=== PATIENT | male | born 1940 | race Caucasian/White ===

== ENCOUNTER 2017-09-14 09:24 | Inpatient (IN) | payer MEDICARE ==
[~2017-09-14] VITALS: Ht 182.9 cm; Wt 86.2 kg
[2017-09-14 09:33] VITALS: BP 127/72
[2017-09-14] MEDS ORDERED: Sodium Chloride 500ML 500 ML IV ONE ×2 (09:33→11:00)
[2017-09-14 10:08] LABS: HEMATOCRIT 42.7 % (42.0-52.0); MEAN CORPUSCULAR VOLUME 89 FL (80-99); PLATELET COUNT 126 K/UL (150-450); RED CELL DISTRIBUTION WIDTH 11.4 % (11.6-14.8); WHITE BLOOD COUNT 11.1 K/UL (4.8-10.8)
[2017-09-14 10:12] LABS: APPEARANCE,URINE CLEAR; BILIRUBIN, URINE NEGATIVE (NEGATIVE); COLOR,URINE PALE YELLOW; GLUCOSE, URINE (UA) 4+ (NEGATIVE); KETONES,URINE 1+ (NEGATIVE); LEUKOCYTE ESTERASE ,URINE NEGATIVE (NEGATIVE); NITRITE,URINE NEGATIVE (NEGATIVE); PH,URINE 5 (4.5-8.0); PROTEIN,URINE 2+ (NEGATIVE); UROBILINOGEN,URINE NORMAL MG/DL (0.0-1.0)
[2017-09-14 10:22] LABS: ANION GAP 9 mmol/L (5-15); BLOOD UREA NITROGEN 21 mg/dL (7-18); CALCIUM 8.8 MG/DL (8.5-10.1); CARBON DIOXIDE 25 MMOL/L (21-32); CHLORIDE 101 MMOL/L (98-107); CREATININE 1.7 MG/DL (0.55-1.30); POTASSIUM 5.5 MMOL/L (3.5-5.1); SODIUM 135 MMOL/L (136-145)
[2017-09-14 10:32] LABS: ALANINE AMINOTRANSFERASE 56 U/L (12-78); ALBUMIN 3.6 G/DL (3.4-5.0); ALBUMIN/GLOBULIN RATIO 0.9 (1.0-2.7); ALKALINE PHOSPHATASE 96 U/L (46-116); ASPARTATE AMINO TRANSFERASE 40 U/L (15-37); BILIRUBIN,TOTAL 0.8 MG/DL (0.2-1.0); CKMB 3.3 NG/ML (0.0-3.6); CREATINE KINASE 254 U/L (26-308)
--- NOTE | 2017-09-14 10:38 | Emergency Room Report ---
History of Present Illness General Chief Complaint: Vomiting Source: Patient Present Illness HPI Patient presents with complaints of nausea and vomiting Reports that he was flying in last night and had a [employer] hamburger Which she associates with the initiation of the symptoms Patient had some increased cramping as well in the mid abdominal area that has improved Also complains of initial diarrhea now starting Denies any fevers or chills denies any neck pain or photophobia Allergies: Coded Allergies: PENICILLINS (Verified Allergy, Unknown, 09/14/17) Patient History Past Medical History: see triage record Pertinent Family History: none Reviewed Nursing Documentation: PMH: Agreed; PSxH: Agreed Nursing Documentation-PMH Hx Cardiac Problems: Yes - [place],AFIB Hx Diabetes: Yes Review of Systems All Other Systems: negative except mentioned in HPI Physical Exam Vital Signs Date Time Temp Pulse Resp B/P (MAP) Pulse Ox O2 Delivery O2 Flow Rate FiO2 09/14/17 09:24 98.8 90 16 127/72 98 Room Air 98.8 Sp02 EP Interpretation: reviewed, normal General Appearance: well appearing, no apparent distress Head: normocephalic, atraumatic Eyes: bilateral eye PERRL, bilateral eye EOMI ENT: hearing grossly normal, normal pharynx, TMs + canals normal, uvula midline Neck: full range of motion, supple, no meningismus, no bony tend Respiratory: lungs clear, normal breath sounds, no rhonchi, no respiratory distress, no retraction, no accessory muscle use Cardiovascular #1: normal peripheral pulses, regular rate, rhythm, no edema, no gallop, no JVD, no murmur Gastrointestinal: normal bowel sounds, non tender, soft, no mass, no organomegaly, non-distended, no guarding, no hernia, no pulsatile mass, no rebound Genitourinary: no CVA tenderness Musculoskeletal: normal inspection Neurologic: oriented x3, responsive, 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 nml as tested, motor strength/ tone normal, sensory intact Psychiatric: mood/affect normal Skin: normal color, no rash, warm/dry, palpation normal Lymphatic: normal inspection, no adenopathy Medical Decision Making Diagnostic Impression: Primary Impression: Dehydration Additional Impressions: Renal insufficiency Thrombocytopenia ER Course Given the patient's history and presentation Multiple differentials are considered Initial baseline blood work reveals Hyperkalemia, patient's kidney function is elevated And the platelets are low I did make contact with the patient's primary physician Who reported previous idiopathic thrombocytopenia However does not recall the platelets being that low Also was not aware of any kidney disease however the family reports some elevated creatinine level Initially attempt was made to provide antibiotics for possible infectious pathology However the family has requested not to be given that medicine therefore further inpatient evaluation will be made This was also important regarding the patient's chest x-ray showing possible pneumonia versus scarring Patient denies any shortness of breath however Labs Test 09/14/17 09:56 White Blood Count 11.1 K/UL (4.8-10.8) Red Blood Count 4.80 M/UL (4.70-6.10) Hemoglobin 14.0 G/DL (14.2-18.0) Hematocrit 42.7 % (42.0-52.0) Mean Corpuscular Volume 89 FL (80-99) Mean Corpuscular Hemoglobin 29.2 PG (27.0-31.0) Mean Corpuscular Hemoglobin Concent 32.8 G/DL (32.0-36.0) Red Cell Distribution Width 11.4 % (11.6-14.8) Platelet Count 126 K/UL (150-450) Mean Platelet Volume 7.1 FL (6.5-10.1) Neutrophils (%) (Auto) % (45.0-75.0) Lymphocytes (%) (Auto) % (20.0-45.0) Monocytes (%) (Auto) % (1.0-10.0) Eosinophils (%) (Auto) % (0.0-3.0) Basophils (%) (Auto) % (0.0-2.0) Differential Total Cells Counted 100 Neutrophils % (Manual) 95 % (45-75) Lymphocytes % (Manual) 3 % (20-45) Monocytes % (Manual) 2 % (1-10) Eosinophils % (Manual) 0 % (0-3) Basophils % (Manual) 0 % (0-2) Band Neutrophils 0 % (0-8) Platelet Estimate Decreased Platelet Morphology Normal Urine Color Pale yellow Urine Appearance Clear Urine pH 5 (4.5-8.0) Urine Specific [place] 1.015 (1.005-1.035) Urine Protein 2+ (NEGATIVE) Urine Glucose (UA) 4+ (NEGATIVE) Urine Ketones 1+ (NEGATIVE) Urine Occult Blood Negative (NEGATIVE) Urine Nitrite Negative (NEGATIVE) Urine Bilirubin Negative (NEGATIVE) Urine Urobilinogen Normal MG/DL (0.0-1.0) Urine Leukocyte Esterase Negative (NEGATIVE) Urine RBC 0-2 /HPF (0 - 0) Urine WBC 0-2 /HPF (0 - 0) Urine Squamous Epithelial Cells Occasional /LPF Urine Bacteria Few /HPF (NONE) Sodium Level 135 MMOL/L (136-145) Potassium Level 5.5 MMOL/L (3.5-5.1) Chloride Level 101 MMOL/L (98-107) Carbon Dioxide Level 25 MMOL/L (21-32) Anion Gap 9 mmol/L (5-15) Blood Urea Nitrogen 21 mg/dL (7-18) Creatinine 1.7 MG/DL (0.55-1.30) Estimat Glomerular Filtration Rate mL/min (>60) Glucose Level 314 MG/DL (74-106) Calcium Level 8.8 MG/DL (8.5-10.1) Total Bilirubin 0.8 MG/DL (0.2-1.0) Aspartate Amino Transf (AST/SGOT) 40 U/L (15-37) Alanine Aminotransferase (ALT/SGPT) 56 U/L (12-78) Alkaline Phosphatase 96 U/L (46-116) Total Creatine Kinase 254 U/L (26-308) Creatine Kinase MB 3.3 NG/ML (0.0-3.6) Creatine Kinase MB Relative Index 1.2 Troponin I 0.000 ng/mL (0.000-0.056) Total Protein 7.4 G/DL (6.4-8.2) Albumin 3.6 G/DL (3.4-5.0) Globulin 3.8 g/dL Albumin/Globulin Ratio 0.9 (1.0-2.7) Lipase 153 U/L (73-393) Chest X-Ray Diagnostic Results Chest X-Ray Diagnostic Results : Chest X-Ray Ordered: Yes # of Views/Limited/Complete: 1 View Indication: Chest Pain EP Interpretation: Yes Interpretation: no effusion, no pneumothorax, other - Right upper lnfiltrate versus scarring Impression: Other - Right-sided infiltrate versus scarring Electronically Signed by: Gopal Sykes DO Last Vital Signs Date Time Temp Pulse Resp B/P (MAP) Pulse Ox O2 Delivery O2 Flow Rate FiO2 09/14/17 09:33 98.8 90 16 127/72 98 Room Air 98.8 Status: improved Disposition: ADMITTED INPATIENT Condition: Serious Gopal Sykes DO Sep 14, 2017 10:38
[2017-09-14 11:56] VITALS: BP 124/74
--- NOTE | 2017-09-14 12:21 | Diagnostic Imaging Report ---
Indication: Chest pain Technique: One view of the chest Comparison: None Findings: There is infiltrate in the inferior right upper lobe, bordering the minor fissure. The heart is enlarged. The remainder the lungs and pleural spaces are clear. Impression: Inferior right upper lobe infiltrate, likely pneumonia
[2017-09-14 12:48] VITALS: BP 130/79
[2017-09-14] MEDS ORDERED: Metoclopramide 10mg/2ml Inj IVP PRN (13:30)
--- NOTE | 2017-09-14 13:34 | Infectious Diseases Prog Note ---
Assessment/Plan Problems: (1) Pneumonia Assessment & Plan: with RUL infiltrates , will send blood culture to rule out bacteremia and start levaquin (2) Gastroenteritis due to food toxin Assessment & Plan: agree on stool culture and C diff (3) Diabetes mellitus Assessment & Plan: recommend tight glycemic control to keep blood glucose between 100-140 (4) Dehydration Assessment & Plan: continue IVF for hydration , monitor lytes Subjective Allergies: Coded Allergies: PENICILLINS (Verified Allergy, Unknown, 09/14/17) Objective Vital Signs Last 24 Hour Vital Signs Date Time Temp Pulse Resp B/P (MAP) Pulse Ox O2 Delivery O2 Flow Rate FiO2 09/14/17 12:50 98.2 91 18 130/79 98 Room Air 98.2 09/14/17 12:48 98.2 91 18 130/79 98 Room Air 98.2 09/14/17 11:56 98.8 88 16 124/74 99 Room Air 98.8 09/14/17 09:33 98.8 90 16 127/72 98 Room Air 98.8 09/14/17 09:24 98.8 90 16 127/72 98 Room Air 98.8 Height (Feet): 6 Weight (Pounds): 190 Laboratory Tests Test 09/14/17 09:56 White Blood Count 11.1 K/UL (4.8-10.8) H Red Blood Count 4.80 M/UL (4.70-6.10) Hemoglobin 14.0 G/DL (14.2-18.0) L Hematocrit 42.7 % (42.0-52.0) Mean Corpuscular Volume 89 FL (80-99) Mean Corpuscular Hemoglobin 29.2 PG (27.0-31.0) Mean Corpuscular Hemoglobin Concent 32.8 G/DL (32.0-36.0) Red Cell Distribution Width 11.4 % (11.6-14.8) L Platelet Count 126 K/UL (150-450) L Mean Platelet Volume 7.1 FL (6.5-10.1) Neutrophils (%) (Auto) % (45.0-75.0) Lymphocytes (%) (Auto) % (20.0-45.0) Monocytes (%) (Auto) % (1.0-10.0) Eosinophils (%) (Auto) % (0.0-3.0) Basophils (%) (Auto) % (0.0-2.0) Differential Total Cells Counted 100 Neutrophils % (Manual) 95 % (45-75) H Lymphocytes % (Manual) 3 % (20-45) L Monocytes % (Manual) 2 % (1-10) Eosinophils % (Manual) 0 % (0-3) Basophils % (Manual) 0 % (0-2) Band Neutrophils 0 % (0-8) Platelet Estimate Decreased L Platelet Morphology Normal Urine Color Pale yellow Urine Appearance Clear Urine pH 5 (4.5-8.0) Urine Specific [place] 1.015 (1.005-1.035) Urine Protein 2+ (NEGATIVE) H Urine Glucose (UA) 4+ (NEGATIVE) H Urine Ketones 1+ (NEGATIVE) H Urine Occult Blood Negative (NEGATIVE) Urine Nitrite Negative (NEGATIVE) Urine Bilirubin Negative (NEGATIVE) Urine Urobilinogen Normal MG/DL (0.0-1.0) Urine Leukocyte Esterase Negative (NEGATIVE) Urine RBC 0-2 /HPF (0 - 0) H Urine WBC 0-2 /HPF (0 - 0) Urine Squamous Epithelial Cells Occasional /LPF Urine Bacteria Few /HPF (NONE) Sodium Level 135 MMOL/L (136-145) L Potassium Level 5.5 MMOL/L (3.5-5.1) H Chloride Level 101 MMOL/L (98-107) Carbon Dioxide Level 25 MMOL/L (21-32) Anion Gap 9 mmol/L (5-15) Blood Urea Nitrogen 21 mg/dL (7-18) H Creatinine 1.7 MG/DL (0.55-1.30) H Estimat Glomerular Filtration Rate mL/min (>60) Glucose Level 314 MG/DL (74-106) H Calcium Level 8.8 MG/DL (8.5-10.1) Total Bilirubin 0.8 MG/DL (0.2-1.0) Aspartate Amino Transf (AST/SGOT) 40 U/L (15-37) H Alanine Aminotransferase (ALT/SGPT) 56 U/L (12-78) Alkaline Phosphatase 96 U/L (46-116) Total Creatine Kinase 254 U/L (26-308) Creatine Kinase MB 3.3 NG/ML (0.0-3.6) Creatine Kinase MB Relative Index 1.2 Troponin I 0.000 ng/mL (0.000-0.056) Total Protein 7.4 G/DL (6.4-8.2) Albumin 3.6 G/DL (3.4-5.0) Globulin 3.8 g/dL Albumin/Globulin Ratio 0.9 (1.0-2.7) L Lipase 153 U/L (73-393) Current Medications Medications (Trade) Dose Ordered Sig/Azeb Route PRN Reason Start Time Stop Time Status Last Admin Dose Admin Acetaminophen (Tylenol) 650 mg Q4H PRN ORAL Mild Pain (Pain Scale 1-3) 09/14/17 13:00 10/14/17 12:59 Dextrose (Dextrose 50%) 25 ml STAT PRN IV Hypoglycemia 09/14/17 13:00 10/14/17 12:59 Dextrose (Dextrose 50%) 50 ml STAT PRN IV Hypoglycemia 09/14/17 13:00 10/14/17 12:59 Insulin Aspart (NovoLOG) BEFORE MEALS AND HS SUBQ 09/14/17 16:30 10/14/17 16:29 Ondansetron HCl (Zofran) 4 mg Q6H PRN IVP Nausea & Vomiting 09/14/17 13:00 10/14/17 12:59 Sodium Chloride 1,000 ml @ 100 mls/hr Q10H IVLG 09/14/17 13:30 10/14/17 13:29 Stephanie Nixon M.D. Sep 14, 2017 13:34
--- NOTE | 2017-09-14 13:35 | GI Initial Consult Note ---
History of Present Illness General Date patient seen: Sep 14, 2017 Time patient seen: 13:23 Reason for Hospitalization: Vomiting Referring physician: CARROLL Reason for Consultation: N/V/D Present Illness HPI Patient presents with complaints of nausea and vomiting Reports that he was flying in last night and had a [employer] hamburger Which she associates with the initiation of the symptoms Patient had some increased cramping as well in the mid abdominal area that has improved Also complains of initial diarrhea now starting. Denies any fevers or chills denies any neck pain or photophobia. GI consulted for N/V/D. Pt seen, awake A&Ox NAD. Denies any abdominal pain at this time, states his diarrhea has resolved. Last episode was earlier this morning, denied any melena or hematochezia.. Also denied any coffee grounds or hematemesis. Last colonoscopy was over 10 years ago, refuses to have one done at this time. Labs reviewed show mild leukocytosis, hyperglycemia and renal insufficiency. CXR suggestive of pneumonia. Allergies: Coded Allergies: PENICILLINS (Verified Allergy, Unknown, 09/14/17) Patient History History Provided By: Patient PMH Narrative Hx Cardiac Problems: Yes - [place],AFIB Hx Diabetes: Yes Social History: Denies: smoking, alcohol use, drug use, other Review of Systems All Other Systems: negative except mentioned in HPI Physical Exam Vital Signs Date Time Temp Pulse Resp B/P (MAP) Pulse Ox O2 Delivery O2 Flow Rate FiO2 09/14/17 09:24 98.8 90 16 127/72 98 Room Air 98.8 Sp02 EP Interpretation: reviewed, normal Labs Laboratory Tests Test 09/14/17 09:56 White Blood Count 11.1 K/UL (4.8-10.8) H Red Blood Count 4.80 M/UL (4.70-6.10) Hemoglobin 14.0 G/DL (14.2-18.0) L Hematocrit 42.7 % (42.0-52.0) Mean Corpuscular Volume 89 FL (80-99) Mean Corpuscular Hemoglobin 29.2 PG (27.0-31.0) Mean Corpuscular Hemoglobin Concent 32.8 G/DL (32.0-36.0) Red Cell Distribution Width 11.4 % (11.6-14.8) L Platelet Count 126 K/UL (150-450) L Mean Platelet Volume 7.1 FL (6.5-10.1) Neutrophils (%) (Auto) % (45.0-75.0) Lymphocytes (%) (Auto) % (20.0-45.0) Monocytes (%) (Auto) % (1.0-10.0) Eosinophils (%) (Auto) % (0.0-3.0) Basophils (%) (Auto) % (0.0-2.0) Differential Total Cells Counted 100 Neutrophils % (Manual) 95 % (45-75) H Lymphocytes % (Manual) 3 % (20-45) L Monocytes % (Manual) 2 % (1-10) Eosinophils % (Manual) 0 % (0-3) Basophils % (Manual) 0 % (0-2) Band Neutrophils 0 % (0-8) Platelet Estimate Decreased L Platelet Morphology Normal Urine Color Pale yellow Urine Appearance Clear Urine pH 5 (4.5-8.0) Urine Specific [place] 1.015 (1.005-1.035) Urine Protein 2+ (NEGATIVE) H Urine Glucose (UA) 4+ (NEGATIVE) H Urine Ketones 1+ (NEGATIVE) H Urine Occult Blood Negative (NEGATIVE) Urine Nitrite Negative (NEGATIVE) Urine Bilirubin Negative (NEGATIVE) Urine Urobilinogen Normal MG/DL (0.0-1.0) Urine Leukocyte Esterase Negative (NEGATIVE) Urine RBC 0-2 /HPF (0 - 0) H Urine WBC 0-2 /HPF (0 - 0) Urine Squamous Epithelial Cells Occasional /LPF Urine Bacteria Few /HPF (NONE) Sodium Level 135 MMOL/L (136-145) L Potassium Level 5.5 MMOL/L (3.5-5.1) H Chloride Level 101 MMOL/L (98-107) Carbon Dioxide Level 25 MMOL/L (21-32) Anion Gap 9 mmol/L (5-15) Blood Urea Nitrogen 21 mg/dL (7-18) H Creatinine 1.7 MG/DL (0.55-1.30) H Estimat Glomerular Filtration Rate mL/min (>60) Glucose Level 314 MG/DL (74-106) H Calcium Level 8.8 MG/DL (8.5-10.1) Total Bilirubin 0.8 MG/DL (0.2-1.0) Aspartate Amino Transf (AST/SGOT) 40 U/L (15-37) H Alanine Aminotransferase (ALT/SGPT) 56 U/L (12-78) Alkaline Phosphatase 96 U/L (46-116) Total Creatine Kinase 254 U/L (26-308) Creatine Kinase MB 3.3 NG/ML (0.0-3.6) Creatine Kinase MB Relative Index 1.2 Troponin I 0.000 ng/mL (0.000-0.056) Total Protein 7.4 G/DL (6.4-8.2) Albumin 3.6 G/DL (3.4-5.0) Globulin 3.8 g/dL Albumin/Globulin Ratio 0.9 (1.0-2.7) L Lipase 153 U/L (73-393) General Appearance: well appearing, no apparent distress, alert Head: normocephalic EENT: PERRL/EOMI, normal ENT inspection Neck: supple Respiratory: normal breath sounds, no respiratory distress Cardiovascular: normal rate Gastrointestinal: normal inspection, non tender, soft, normal bowel sounds, non -distended Rectal: deferred Genitourinary: deferred Musculoskeletal: normal inspection, back normal Neurologic: normal inspection, alert, oriented x3, responsive Psychiatric: normal inspection, judgement/insight normal, memory normal Skin: normal inspection, normal color, no rash, warm/dry, palpation normal, well hydrated Lymphatic: normal inspection, no adenopathy Current Medications Current Medications Medications (Trade) Dose Ordered Sig/Azeb Route PRN Reason Start Time Stop Time Status Last Admin Dose Admin Acetaminophen (Tylenol) 650 mg Q4H PRN ORAL Mild Pain (Pain Scale 1-3) 09/14/17 13:00 10/14/17 12:59 Dextrose (Dextrose 50%) 25 ml STAT PRN IV Hypoglycemia 09/14/17 13:00 10/14/17 12:59 Dextrose (Dextrose 50%) 50 ml STAT PRN IV Hypoglycemia 09/14/17 13:00 10/14/17 12:59 Insulin Aspart (NovoLOG) BEFORE MEALS AND HS SUBQ 09/14/17 16:30 10/14/17 16:29 Ondansetron HCl (Zofran) 4 mg Q6H PRN IVP Nausea & Vomiting 09/14/17 13:00 10/14/17 12:59 Sodium Chloride 1,000 ml @ 100 mls/hr Q10H IVLG 09/14/17 13:30 10/14/17 13:29 GI: Plan Problems: (1) Hyperglycemia (2) Gastroparesis (3) Pneumonia (4) Dehydration (5) Gastroenteritis due to food toxin (6) Diabetes mellitus Plan CXR reviewed >> Inferior right upper lobe infiltrate, likely pneumonia gastroenteritis vs gastroparesis 2/2 DM elevated AST okay to advance to ADA diet DM management zofran prn, reglan for persistent vomiting PO/IV hydration abx trend LFTs fu labs, Hg A1C outpatient GI procedures Discussed with Dr. Velasco. Thank you for this patient referral, we will follow. The patient was seen and examined at bedside and all new and available data was reviewed in the patients chart. I agree with the above findings, impression and plan. (Patient seen earlier today. Signature stamp does not reflect patient encounter time.). - MD Mahi BelcherB[facility] [employer]IPMENT [employer]IC Sep 14, 2017 13:35
[2017-09-14] MEDS ORDERED: cefTRIAXone 2 GM in D5W 110 ML IVPB SCH (16:00)
[2017-09-14 16:02] VITALS: BP 110/70
[2017-09-14 17:13] LABS: ANION GAP 10 mmol/L (5-15); BLOOD UREA NITROGEN 20 mg/dL (7-18); CALCIUM 8.5 MG/DL (8.5-10.1); CARBON DIOXIDE 25 MMOL/L (21-32); CHLORIDE 104 MMOL/L (98-107); CREATININE 1.6 MG/DL (0.55-1.30); POTASSIUM 5.1 MMOL/L (3.5-5.1); SODIUM 139 MMOL/L (136-145)
[2017-09-14] MEDS: Eliquis 2.5mg tablet ORAL SCH (17:44)
[2017-09-14] MEDS: Metoprolol Succinate XL 50mg tab ORAL SCH (17:46)
[2017-09-14] MEDS: NovoLOG Insulin Flexpen SUBQ SCH ×2 (17:46→20:37)
--- NOTE | 2017-09-14 19:30 | Consultation ---
DATE OF CONSULTATION: 09/14/2017 INFECTIOUS DISEASE CONSULTATION CONSULTING PHYSICIAN: Stephanie Nixon M.D. REQUESTING PHYSICIAN: Walter Franklin M.D. REASON FOR CONSULTATION: Pneumonia, recommendation for antibiotics treatment for the patient with penicillin allergy. HISTORY OF PRESENT ILLNESS: The patient is a 77-year-old male with past medical history of cardiac disease, atrial fibrillation, history of [place] and diabetes who was visiting from [place] and landed last night in [place] developed nausea, vomiting and cough after he ate a burger from [employer] during his trip. The patient denied any recent sick contact. He was having chills after he arrived in the airport and he was brought into [facility] emergency room for further evaluation. The patient had a chest x-ray, which showed right upper lobe infiltrate concerning for pneumonia. So, he received ciprofloxacin in the emergency room and was admitted to the hospital for further evaluation and management and Infectious Disease consultation was requested for antibiotics treatment and further care. The patient was feeling better today with dry cough, but no shortness of breath. No more chills or rigors. No more nausea or vomiting. No bowel movement today. PAST MEDICAL HISTORY: Significant for coronary artery disease, status post [place], atrial fibrillation and diabetes. PAST SURGICAL HISTORY: Not on records. MEDICATIONS: The patient received ciprofloxacin seen in the emergency room. For the rest of his medications, please refer to MAR. ALLERGY: He had remote history of penicillin allergy. He is not sure exactly, but probably skin rash. 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 Denied using any drugs, tobacco, or alcohol. FAMILY HISTORY: Not contributory. REVIEW OF SYSTEMS: A 14-point of system reviewed were all negative apart from the one I mentioned above in my History and Physical. PHYSICAL EXAMINATION: GENERAL: The elderly male up in bed, awake, alert, oriented, comfortable, not in acute distress. VITAL SIGNS: Temperature of 98.2 degrees, pulse is 91, respiration 18, blood pressure 130/79 and saturation 98% on room air. HEENT: Normocephalic and atraumatic. Pupils both reactive to light. Moist oral mucosa. No exudate or thrush. NECK: Supple. No lymphadenopathy. CARDIOVASCULAR: Regular rate and rhythm. No murmur or gallop. LUNGS: He had diminished breathing sound on the right mid lung with crackles. No wheezing. Normal breathing efforts. ABDOMEN: Soft, nontender, and nondistended. Normal bowel sounds. No hepatosplenomegaly. No ascites. EXTREMITIES: No edema. No cyanosis. SKIN: No rash or hives. LABORATORY AND DIAGNOSTIC DATA: Labs showed white count of 11.1, hemoglobin of 14, and platelet count of 126. BUN of 21 and creatinine of 1.7. AST 40 and ALT 56. Urinalysis showed +4 glucose, +2 protein, and +1 ketones with wbc's of 0-2. Imaging, chest x-ray showed inferior right upper lobe infiltrate likely pneumonia. ASSESSMENT AND RECOMMENDATION: 1. Community-acquired pneumonia with right upper lobe infiltrates and cough. We will send blood culture to rule out bacteremia and start ceftriaxone with Zithromax empiric coverage, pending culture. 2. Gastroenteritis with nausea and vomiting, suspect due to food toxin. Agree on stool culture with C. difficile for now. Continue supportive care with hydration and nausea medicine. 3. Dehydration. Continue IV fluid for hydration. Monitor electrolytes. 4. Diabetes, recommend tight glycemic control to keep blood glucose between 100 to 140. Thank you for the consult. ID will continue to follow. Please feel free to call with any question. Stephanie Nixon M.D. DR: DEEPALI JOB#: [id number] CC:
[2017-09-14 20:00] VITALS: BP 120/59
[2017-09-14] MEDS ORDERED: Atorvastatin 20mg tab ORAL SCH (21:00)
--- NOTE | 2017-09-14 21:30 | History and Physical Report ---
DATE OF ADMISSION: 09/14/2017 REASON FOR ADMISSION: 1. Nausea and vomiting. 2. Pneumonia. 3. Dehydration. 4. Acute kidney injury. 5. Hyperkalemia. HISTORY OF PRESENT ILLNESS: The patient is a pleasant 77-year-old gentleman who just flew in from [place] last night. The patient was here to see his new grandson. When through the early hours of this morning, after landing at midnight, the patient started having some nausea, vomiting, and some chills. He also started developing some diarrhea. He has seen regular physicians in [place] and was told that his renal function was 1.7 on Sunday. His potassium is currently 5.5. He said the diarrhea was brisk, but has not been going on for more than those several occurrences over the morning. No current chest pain. Denies any calf pain. 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 PAST MEDICAL HISTORY: 1. Atrial fibrillation. 2. Hypertension. 3. Diabetes mellitus. 4. Hyperlipidemia. ALLERGIES: Questionable to penicillin in 1966 where he had a rash. SOCIAL HISTORY: No current tobacco, alcohol, or illicit drug use. FAMILY HISTORY: Noncontributory. REVIEW OF SYSTEMS: NEUROLOGIC: The patient denies headache, change in vision, syncope, or presyncopal episodes. CARDIOVASCULAR: No current chest pain, palpitations, or angina. PULMONARY: No shortness of breath or productive cough. GASTROINTESTINAL/GENITOURINARY: The patient was having some nausea, vomiting, and diarrhea. ENDOCRINOLOGY: The patient was having some shakes and fevers. MUSCULOSKELETAL: The patient feeling weak, tired, and fatigue. PHYSICAL EXAMINATION: GENERAL: The patient awake, alert, not otherwise in distress. VITAL SIGNS: Blood pressure 130/79, 98% oxygen saturation on room air, pulse 91, and temperature 98.2 degrees. HEENT: Extraocular muscles intact. No lymphadenopathy. CARDIOVASCULAR: S1 and S2. No rubs or gallops. PULMONARY: Clear to auscultation bilaterally without any rhonchi. ABDOMEN: Nondistended and nontender. EXTREMITIES: No edema. No pain to palpation in calf area. LABORATORY AND DIAGNOSTIC DATA: Labs dated 09/14/2017, sodium 135, potassium 5.5, BUN 21, creatinine 1.7, and glucose 314. Creatine kinase 254. Troponin of 0. White cell count 11.1, hemoglobin 14, and platelet count 126. ASSESSMENT AND PLAN: 1. Community-acquired pneumonia. Infectious Disease has been consulted. The patient and have declined any fluoroquinolones. The patient is being treated with Rocephin. Defer antibiotic management to Infectious Disease. 2. Nausea and vomiting, most likely secondary to the pneumonia. Gastroenterology to evaluate other infectious sources. Continue aggressive hydration. 3. Hyperkalemia, mild, potassium 5.5. Continue hydration and recheck potassium level at 4 p.m. today. Irbesartan will be temporarily held. 4. Acute kidney injury versus chronic kidney disease. At this time, creatinine 1.7. Baseline not entirely clear. Irbesartan will be held. The patient will be hydrated. Nephrotoxins will be avoided and renal ultrasound will be ordered to rule out any obstructive uropathy. 5. Atrial fibrillation. We will continue his home dose of Eliquis and aspirin. We will monitor platelets carefully. 6. Deep venous thrombosis prophylaxis. The patient is already fully anticoagulated with Eliquis for his atrial fibrillation. Walter Franklin MD DR: SAE JOB#: [id number] CC:
[2017-09-15] VITALS: BP 108/59
[2017-09-15 04:00] VITALS: BP 105/57
[2017-09-15 06:01] LABS: HEMATOCRIT 33.9 % (42.0-52.0); HEMOGLOBIN 11.6 G/DL (14.2-18.0); MEAN CORPUSCULAR VOLUME 89 FL (80-99); PLATELET COUNT 95 K/UL (150-450); RED BLOOD COUNT 3.82 M/UL (4.70-6.10); RED CELL DISTRIBUTION WIDTH 11.1 % (11.6-14.8); WHITE BLOOD COUNT 10.9 K/UL (4.8-10.8)
[2017-09-15] MEDS ORDERED: Glimepiride 1mg tab ORAL SCH (06:30)
[2017-09-15] MEDS: NovoLOG Insulin Flexpen SUBQ SCH (06:39)
[2017-09-15 06:51] LABS: ALANINE AMINOTRANSFERASE 39 U/L (12-78); ALBUMIN 2.7 G/DL (3.4-5.0); ALBUMIN/GLOBULIN RATIO 0.8 (1.0-2.7); ALKALINE PHOSPHATASE 55 U/L (46-116); ANION GAP 9 mmol/L (5-15); ASPARTATE AMINO TRANSFERASE 24 U/L (15-37); BILIRUBIN,TOTAL 0.7 MG/DL (0.2-1.0); BLOOD UREA NITROGEN 15 mg/dL (7-18); CALCIUM 7.9 MG/DL (8.5-10.1); CARBON DIOXIDE 25 MMOL/L (21-32); CHLORIDE 105 MMOL/L (98-107); CREATININE 1.6 MG/DL (0.55-1.30); PHOSPHORUS 2.6 MG/DL (2.5-4.9); POTASSIUM 4.1 MMOL/L (3.5-5.1); SODIUM 139 MMOL/L (136-145)
[2017-09-15 08:00] VITALS: BP 109/59
--- NOTE | 2017-09-15 08:12 | Nephrology Progress Note ---
Assessment/Plan Assessment/Plan 1. PNA- improved - will plan for DC today on Cefdinir 2. HTN- stable 3. DM- continue set home regimen. Cr 1.6. Can continue Janumet 4. Hyperk+ resolved off ARB 5. BIANCA/CKD 3B- Cr at 1.6. Will need renal f/u back in [place] 6. Thrombocytopenia- on ASA and Eliquis Plt 95K. DC after Heme evaluation if OK to be DC Subjective Date patient seen: Sep 15, 2017 Time patient seen: 08:07 ROS Limited/Unobtainable: No Allergies: Coded Allergies: PENICILLINS (Verified Allergy, Unknown, 09/14/17) All Systems: reviewed and negative except above Subjective Patient feels well, no complaints Objective Last 24 Hour Vital Signs Date Time Temp Pulse Resp B/P (MAP) Pulse Ox O2 Delivery O2 Flow Rate FiO2 09/15/17 04:00 97.9 63 16 105/57 93 97.9 09/15/17 00:00 98.9 70 16 108/59 92 98.9 09/14/17 20:00 99.5 78 17 120/59 94 99.5 09/14/17 17:46 75 129/86 09/14/17 16:02 98.6 85 20 110/70 96 98.6 09/14/17 12:50 98.2 91 18 130/79 98 Room Air 98.2 09/14/17 12:48 98.2 91 18 130/79 98 Room Air 98.2 09/14/17 11:56 98.8 88 16 124/74 99 Room Air 98.8 09/14/17 09:33 98.8 90 16 127/72 98 Room Air 98.8 09/14/17 09:24 98.8 90 16 127/72 98 Room Air 98.8 Intake and Output 09/14/17 09/15/17 19:00 07:00 Intake Total 240 ml 200 ml Output Total 0 ml Balance 240 ml 200 ml Intake Oral 240 ml 200 ml Output Urine Total 0 ml # Voids 3 Laboratory Tests 09/14/17 09:56: White Blood Count 11.1H, Red Blood Count 4.80, Hemoglobin 14.0L, Hematocrit 42.7 , Mean Corpuscular Volume 89, Mean Corpuscular Hemoglobin 29.2, Mean Corpuscular Hemoglobin Concent 32.8, Red Cell Distribution Width 11.4L, Platelet Count 126L, Mean Platelet Volume 7.1, Neutrophils (%) (Auto) , Lymphocytes (%) (Auto) , Monocytes (%) (Auto) , Eosinophils (%) (Auto) , Basophils (%) (Auto) , Differential Total Cells Counted 100, Neutrophils % ( Manual) 95H, Lymphocytes % (Manual) 3L, Monocytes % (Manual) 2, Eosinophils % ( Manual) 0, Basophils % (Manual) 0, Band Neutrophils 0, Platelet Estimate DecreasedL, Platelet Morphology Normal, Urine Color Pale yellow, Urine Appearance Clear, Urine pH 5, Urine Specific [place] 1.015, Urine Protein 2+H, Urine Glucose (UA) 4+H, Urine Ketones 1+H, Urine Occult Blood Negative, Urine Nitrite Negative, Urine Bilirubin Negative, Urine Urobilinogen Normal, Urine Leukocyte Esterase Negative, Urine RBC 0-2H, Urine WBC 0-2, Urine Squamous Epithelial Cells Occasional, Urine Bacteria Few, Sodium Level 135L, Potassium Level 5.5H, Chloride Level 101, Carbon Dioxide Level 25, Anion Gap 9, Blood Urea Nitrogen 21H, Creatinine 1.7H, Estimat Glomerular Filtration Rate , Glucose Level 314H, Calcium Level 8.8, Total Bilirubin 0.8, Aspartate Amino Transf (AST/SGOT) 40H, Alanine Aminotransferase (ALT/SGPT) 56, Alkaline Phosphatase 96, Total Creatine Kinase 254, Creatine Kinase MB 3.3, Creatine Kinase MB Relative Index 1.2, Troponin I 0.000, Total Protein 7.4, Albumin 3.6, Globulin 3.8, Albumin/Globulin Ratio 0.9L, Lipase 153 09/14/17 16:00: Sodium Level 139, Potassium Level 5.1, Chloride Level 104, Carbon Dioxide Level 25, Anion Gap 10, Blood Urea Nitrogen 20H, Creatinine 1.6H, Estimat Glomerular Filtration Rate , Glucose Level 217H, Calcium Level 8.5, Troponin I 0.000, E.coli Shiga Toxins [Pending] 09/15/17 05:30: White Blood Count 10.9H, Red Blood Count 3.82L, Hemoglobin 11.6L, Hematocrit 33.9L, Mean Corpuscular Volume 89, Mean Corpuscular Hemoglobin 30.3, Mean Corpuscular Hemoglobin Concent 34.1, Red Cell Distribution Width 11.1L, Platelet Count 95L, Mean Platelet Volume 7.4, Neutrophils (%) (Auto) , Lymphocytes (%) (Auto) , Monocytes (%) (Auto) , Eosinophils (%) (Auto) , Basophils (%) (Auto) , Differential Total Cells Counted 100, Neutrophils % ( Manual) 75, Lymphocytes % (Manual) 17L, Monocytes % (Manual) 4, Eosinophils % ( Manual) 2, Basophils % (Manual) 2, Band Neutrophils 0, Platelet Estimate DecreasedL, Platelet Morphology Normal, Sodium Level 139, Potassium Level 4.1, Chloride Level 105, Carbon Dioxide Level 25, Anion Gap 9, Blood Urea Nitrogen 15 , Creatinine 1.6H, Estimat Glomerular Filtration Rate , Glucose Level 180H, Calcium Level 7.9L, Total Bilirubin 0.7, Aspartate Amino Transf (AST/SGOT) 24, Alanine Aminotransferase (ALT/SGPT) 39, Alkaline Phosphatase 55, Total Protein 6.0L, Albumin 2.7L, Globulin 3.3, Albumin/Globulin Ratio 0.8L, Hemoglobin A1c 7.5H, Phosphorus Level 2.6, Magnesium Level 1.5L Height (Feet): 6 Height (Inches): 0.00 Weight (Pounds): 190 General Appearance: no apparent distress, alert EENT: normal ENT inspection Neck: normal alignment, supple, normal inspection Cardiovascular: normal rate, regular rhythm Respiratory/Chest: lungs clear, normal breath sounds Abdomen: non tender, soft Edema: no edema noted Arm (L), no edema noted Arm (R), no edema noted Leg (L), no edema noted Leg (R), no edema noted Pedal (L), no edema noted Pedal (R), no edema noted Generalized Walter Franklin M.D. Sep 15, 2017 08:12
--- NOTE | 2017-09-15 08:15 | Discharge Instructions ---
Discharge Instructions Discharge Instructions Diet: 2 GM sodium (low sodium), diabetic calorie control Resume Normal Activity?: Yes Activity: light activity, as tolerated Follow Up Orders 1. Hold off Irbesartan 2. F/U PCP- 2-5 days 3. Complete 7 days of Cefdinir For Congestive Heart Failure Reminder Report to your physician any weight gain of 5 pounds or more in one week. Walter Franklin M.D. Sep 15, 2017 08:15
[2017-09-15] MEDS: Eliquis 2.5mg tablet ORAL SCH (08:42)
--- NOTE | 2017-09-15 08:43 | Diagnostic Imaging Report ---
EXAM: US Retroperitoneal Complete, Renal CLINICAL HISTORY: RENAL-A TECHNIQUE: Real-time ultrasound of the retroperitoneum (complete) with image documentation. COMPARISON: No relevant prior studies available. FINDINGS: Right kidney: Right kidney measures 12.3 x 5.8 x 6 cm. Midpole right renal anechoic simple cyst measures 2.5 x 2.7 x 2.9 cm. No stones. No hydronephrosis. Normal renal cortical echogenicity. Left kidney: Left kidney measures 11.4 x 5.0 x 6.7 cm.. Normal renal cortical echogenicity. No stones. No hydronephrosis. Bladder: Unremarkable as visualized. IMPRESSION: 1. Midpole right renal cyst measures 2.5 x 2.7 x 2.9 cm. 2. No renal obstruction.
[2017-09-15 09:00] VITALS: BP 109/59
[2017-09-15] MEDS ORDERED: Calcium Carbonate 500mg w/Vit D 200iu tab ORAL ONE (09:00)
[2017-09-15] MEDS: Metoprolol Succinate XL 50mg tab ORAL SCH (09:00)
[2017-09-15] MEDS ORDERED: Azithromycin 250mg tab ORAL SCH (09:00)
[2017-09-15] MEDS ORDERED: Aspirin EC 325mg tab ORAL SCH (09:00)
[2017-09-15] MEDS ORDERED: Magnesium Oxide 400mg tab ORAL ONE (09:00)
[2017-09-15] MEDS ORDERED: CEFDINIR300 MG PO (10:52)
--- NOTE | 2017-09-15 12:13 | Cardiology Report ---
APPROVED REPORT EKG Measurement Heart [id number] Normal sinus rhythm Low voltage QRS Inferior infarct, age undetermined Cannot rule out Anterior infarct, age undetermined Abnormal ECG
--- NOTE | 2017-09-17 10:00 | Consultation ---
DATE OF CONSULTATION: 09/15/2017 HEMATOLOGY/ONCOLOGY CONSULTATION CONSULTING PHYSICIAN: Satinder Velazco M.D. REFERRING PHYSICIANS: Walter Franklin M.D. and Lazaro Soriano M.D. REASON FOR CONSULTATION: Evaluation of thrombocytopenia. IDENTIFICATION DATA: Dear Dr. Walter Franklin: The patient is a pleasant 77-year-old male with past medical history significant for coronary artery disease, status post MS, atrial fibrillation, and diabetes mellitus, at this time presented to the hospital visiting from [place] last night due to nausea, vomiting, and cough while he was eating a burger at [employer]. Denies any recent sick contacts. He was noted to have chills, sweats and 00:59 in to [employer], noted to have a history of thrombocytopenia. Hematology Service consulted. Potential discharge today, feeling better. No more nausea. No more vomiting. PAST MEDICAL HISTORY: CAD, status post MS, atrial fibrillation, and diabetes. PAST SURGICAL HISTORY: None in the records. MEDICATIONS: 01:14. ALLERGIES: Penicillin allergy, vomiting. SOCIAL HISTORY: He is a traveling 01:22 lives in [place] with his . Denies any alcohol, tobacco, or illicit drug use. FAMILY HISTORY: Noncontributory. REVIEW OF SYSTEMS: CONSTITUTIONAL: No fever, chills, or night sweats. SKIN: No rashes, bumps, or itching. HEENT: No headache or visual change. BREASTS: No lumps, pain, or discharge. PULMONARY: No cough, sputum, or shortness of breath. GASTROINTESTINAL: No nausea, vomiting, or diarrhea. GENITOURINARY: No dysuria, frequency, or urgency. MUSCULOSKELETAL: No joint swelling, muscle pain, or trauma. PHYSICAL EXAMINATION: VITAL SIGNS: Reviewed. GENERAL: No distress. PULMONARY: Decreased breath sounds. CARDIOVASCULAR: Regular rate. No S3 or S4. ABDOMEN: Soft, nontender, and nondistended. EXTREMITIES: No cyanosis or swelling. 01:49. LABORATORY AND DIAGNOSTIC DATA: WBC 10.9, hemoglobin 11.6, hematocrit 34, and platelet count 95,000. Serology 01:55 pending. BUN 15 and creatinine 1.6. Urinalysis reviewed. ASSESSMENT AND RECOMMENDATIONS: 1. Thrombocytopenia. Per the patient, it is chronic. At this time, we recommend to obtain a CBC in one week. The patient's platelet count again is approximately 95,000. Obtain CBC in one week. Discussed with the patient and related to the nurse in regard to discharge instructions. The patient currently is on 02:27. 2. Anemia due to underlying chronic disease, mild. 3. Hyperkalemia 02:41. 4. Acute kidney injury. Recheck BMP in one week. 5. Hypertension. Systolic blood pressure goal less than 140. 6. Pneumonia, currently improving. He is on antibiotics. I appreciate the consultation. Satinder Velazco M.D. DR: Gustavo JOB#: [id number] CC:
--- NOTE | 2017-09-17 10:12 | Discharge Summary ---
Discharge Summary Discharge Summary _ DATE OF ADMISSION: 09/14/2017 DATE OF DISCHARGE: 09/15/2017 REASON FOR ADMISSION: 77 years old male with past medical history of atrial fibrillation, hypertension , diabetes mellitus, hyperlipidemia, coronary artery disease with history of [place] , who just flew in from [place] last night to see his new grandson, presented to EDv with nausea, vomiting, chills, and abdominal cramps. He also developed diarrhea. Patient had [employer]amburger and attributed his symptoms to it. He is under regular medical care in [place] , and was told that his creatinine was 1.7 on Sunday. Diarrhea reported with several occurrences over the morning, but no blood in the stool. No chest pain Upon evaluation in emergency department vital signs were stable; no fever, pulse oximetry was stable on room air . WBC 11.1 , potassium 5.5, BUN 21, creatinine 1.7, urinalysis revealed +2 protein ,no evidence of infection . Chest x-ray showed inferior right upper lobe infiltrate, likely pneumonia. Patient admitted with diagnosis of community-acquired pneumonia, nausea and vomiting, hyperkalemia (mild), acute kidney injury versus chronic kidney disease , atrial fibrillation. CONSULTANTS: ID specialist Dr. Nixon GI specialist Dr. Velasco [facility]: Patient was admitted. Patient started on aggressive IV hydration. Patient started on empiric antibiotics. ID consult was requested. Stool for C difficile was ordered. Blood cultures were negative. Diarrhea stopped , unable to collect stool for C. difficile. Leukocytosis resolved. Serology for Escherichia coli Shigella toxin still pending pending. Symptoms resolved . Infectious disease doctor seen and evaluated patient and stated that the patient had community-acquired pneumonia as well as likely gastroenteritis. p Patient was on IV antibiotics while in the hospital, and was discharged on oral cefdinir to complete the course. Gastroenterology closely followed. Per GI specialist, patient may have gastroenteritis due to toxin versus gastroparesis due to diabetes. Anti-emetics provided: Zofran prn and Reglan for persistent vomiting . Diet slowly advanced as tolerated. GI recommended outpatient GI procedures. Renal parameters and electrolytes were closely monitored; electrolytes replaced as needed, i.e. magnesium. Nephrotoxins were avoided. ARB /Avapro was hold due to hyperkalemia and elevated creatinine. Patient was on aggressive IV hydration. Creatinine from 1.7 down to 1.6. Renal ultrasound revealed normal bilateral echogenicity and no hydronephrosis. Patient was recommended to follow-up with rubber flap cutter as outpatient in [place]. Blood sugar was managed with current regimen. Hemoglobin A1c 7.5 , recommended close monitoring of blood sugar as outpatient. Anticoagulation therapy with Eliquis was resumed for atrial fibrillation, no evidence of bleeding. GI prophylaxis provided. Blood pressure was managed with beta ginny and calcium channel ginny, remained stable. Antiplatelet therapy with aspirin continued. Statin Continued. Noted slight thrombocytopenia. Seen and evaluated by hematology, who cleared patient for discharge, recommended outpatient follow up with platelet counts. Patient symptomatically improved , diarrhea stopped. Patient was able to tolerate diet , afebrile, leukocytosis resolved. Patient was stable for discharge home with outpatient follow-up in [place] with primary care provider for monitoring general medical condition as well as thrombocytopenia , and recommended nephrology evaluation. Due to rapid and unexpected improvement in patient's condition, patient was discharged in one day. FINAL DIAGNOSES: Community acquired pneumonia Nausea and vomiting, likely secondary to pneumonia Possible gastroenteritis Possible gastroparesis Dehydration Diabetes mellitus Acute kidney injury versus chronic kidney disease Atrial fibrillation Thrombocytopenia DISCHARGE MEDICATIONS: See Medication Reconciliation list. Patient was discharged on oral Cefdinir to complete the course DISCHARGE INSTRUCTIONS: Patient was discharged home. Follow up with primary care provider at [place]. Recommended rubber flap cutter evaluation at [place]. I have been assigned to dictate discharge summary for this account. I was not involved in the patient's management. Rolanda Lindquist NP Sep 17, 2017 10:12
== END 2017-09-15 11:15 | disposition home or self-care (01) | DRG 194 ==
LOC: EDBD 09:24 → EMR 10:59 → 4W 11:09 → EDBEDREQ 11:11 → 4W 11:54
DX: J18.9 Pneumonia, unspecified organism (principal); N17.9 Acute kidney failure, unspecified; E11.43 Type 2 diabetes mellitus with diabetic autonomic (poly)neuropathy; K31.84 Gastroparesis; E86.0 Dehydration; N18.9 Chronic kidney disease, unspecified; I48.91 Unspecified atrial fibrillation; D69.6 Thrombocytopenia, unspecified; E87.5 Hyperkalemia; E78.5 Hyperlipidemia, unspecified; I12.9 Hypertensive chronic kidney disease with stage 1 through stage 4 chronic kidney disease, or unspecified chronic kidney disease; E11.22 Type 2 diabetes mellitus with diabetic chronic kidney disease; I25.2 Old myocardial infarction; I25.10 Atherosclerotic heart disease of native coronary artery without angina pectoris; Z88.0 Allergy status to penicillin; A05.9 Bacterial foodborne intoxication, unspecified; D63.8 Anemia in other chronic diseases classified elsewhere
CPT/HCPCS: 36415; 71045; 76770; 80048; 80053; 81003; 82550; 82553; 82962; 83036; 83690; 83735; 84100; 84484; 85007; 85025; 87040; 87427; 93005; 99285; J1815; J2405